=== PATIENT | male | born 1945 | race Caucasian/White ===

== ENCOUNTER 2019-12-15 10:00 | Outpatient (CLI) | payer MEDICARE, SELFPAY ==
--- NOTE | ~2019-12-15 | US_ITS ---
EXAMINATION: US carotid duplex BI DATE: 12/15/2019 10:57 INDICATION: Carotid atherosclerosis and stenosis TECHNIQUE: Grayscale, color Doppler, and pulsed Doppler images of the cervical carotid arteries were obtained. The degree of vessel stenosis is placed in one of the following categories: normal, <50%, 5 0-69%, >=70% but less than near-occlusion, near-occlusion, or total occlusion. Note that percent sten osis relative to normal distal artery lumen diameter is indirectly measured from velocity measurement s as described by Shady, et al. Radiology 2003; 229:340-346. COMPARISON: Carotid ultrasound dated 09/18/[address] dated 11/09/2015 FINDINGS: RIGHT: The right common carotid artery (CCA) peak systolic velocity (PSV) is 109 cm/s. The right internal ca rotid artery (ICA) PSV is 164 cm/s. The right ICA end-diastolic velocity (EDV) is 31 cm/s. The right ICA/CCA PSV ratio is 1.5. Grayscale and color Doppler images yield an estimate of 50-69% diameter red uction from plaque in the ICA. The external carotid artery (ECA) PSV is 156 cm/s. There is antegrade flow with high resistance waveform in a vessel in the region of the right vertebral artery. LEFT: The left CCA PSV is 110 cm/s. The left ICA PSV is 85 cm/s. The left ICA EDV is 14 cm/s. The left ICA/ CCA PSV ratio is 0.8. Grayscale and color Doppler images yield an estimate of <50% diameter reduction from plaque in the ICA. The ECA PSV is 114 cm/s. There is antegrade flow in the left vertebral arter y. IMPRESSION: 1. 50-69% stenosis in the right internal carotid artery. 2. <50% stenosis in the left internal carotid artery. 3. Similar appearance to prior study of minimal antegrade flow with high resistance waveform in the r egion of the right vertebral artery which appeared occluded proximally on an earlier CT angiogram sug gesting this represents flow within a small paravertebral artery. Reviewed, dictated and finalized at location B. IMPRESSION: 1. 50-69% stenosis in the right internal carotid artery. 2. <50% stenosis in the left internal carotid artery. 3. Similar appearance to prior study of minimal antegrade flow with high resist ance waveform in the region of the right vertebral artery which appeared occlud ed proximally on an earlier CT angiogram suggesting this represents flow within a small paravertebral artery.
== END 2019-12-15 10:01 | disposition home or self-care (01) ==
PROVIDERS: PCP Internal Medicine; Visit Provider Nurse Practitioner Adult Health
DX: R09.89 Other specified symptoms and signs involving the circulatory and respiratory systems (principal); I77.9 Disorder of arteries and arterioles, unspecified; I65.23 Occlusion and stenosis of bilateral carotid arteries
CPT/HCPCS: 93880

== ENCOUNTER 2022-06-14 09:55 | Outpatient (CLI) | payer MEDICARE, SELFPAY ==
--- NOTE | ~2022-06-14 | US_ITS ---
EXAMINATION: US carotid duplex BI DATE: 06/14/2022 10:51 INDICATION: Right vertebral artery obstruction TECHNIQUE: Grayscale, color Doppler, and pulsed Doppler images of the cervical carotid arteries were obtained. The degree of vessel stenosis is placed in one of the following categories: normal, <50%, 5 0-69%, >=70% but less than near-occlusion, near-occlusion, or total occlusion. Note that percent sten osis relative to normal distal artery lumen diameter is indirectly measured from velocity measurement s as described by Shady, et al. Radiology 2003; 229:340-346. COMPARISON: Carotid ultrasound studies dated 12/15/2019 and 09/18/[address] angiogram dated 11/09/2015 FINDINGS: RIGHT: The right common carotid artery (CCA) peak systolic velocity (PSV) is 106 cm/s. The right internal ca rotid artery (ICA) PSV is 151 cm/s. The right ICA end-diastolic velocity (EDV) is 36 cm/s. The right ICA/CCA PSV ratio is 1.4. Grayscale and color Doppler images yield an estimate of 50-69% diameter red uction from plaque in the ICA. The external carotid artery (ECA) PSV is 312 cm/s. Again seen is a tin y vessel in the region of the right vertebral artery which demonstrates antegrade flow but with high resistance waveform suggesting this represents a small systemic paravertebral artery rather than the right vertebral artery which appears occluded proximally and the prior CT angiogram. LEFT: The left CCA PSV is 173 cm/s. The left ICA PSV is 148 cm/s. The left ICA EDV is 21 cm/s. The left ICA /CCA PSV ratio is 0.9. Grayscale and color Doppler images yield an estimate of 50-69% diameter reduct ion from plaque in the ICA. The ECA PSV is 183 cm/s. There is antegrade flow in the left vertebral ar [place]. IMPRESSION: 1. 50-69% stenosis in the right internal carotid artery. 2. 50-69% stenosis in the left internal carotid artery. 3. Similar appearance to prior study of minimal antegrade flow with high resistance waveform in a suzette y small artery in the region of the right vertebral artery which appeared occluded proximally on an e arlier CT angiogram suggesting this represents flow within a small systemic para vertebral artery. Reviewed, dictated and finalized at location A. IMPRESSION: 1. 50-69% stenosis in the right internal carotid artery. 2. 50-69% stenosis in the left internal carotid artery. 3. Similar appearance to prior study of minimal antegrade flow with high resist ance waveform in a very small artery in the region of the right vertebral arter y which appeared occluded proximally on an earlier CT angiogram suggesting this represents flow within a small systemic para vertebral artery.
== END 2022-06-14 09:56 | disposition home or self-care (01) ==
PROVIDERS: PCP Internal Medicine; Visit Provider Internal Medicine Cardiovascular Disease
DX: I65.23 Occlusion and stenosis of bilateral carotid arteries (principal); I65.01 Occlusion and stenosis of right vertebral artery
CPT/HCPCS: 93880

== ENCOUNTER 2023-04-27 12:29 | Emergency (ER) | payer MEDICARE, SELFPAY ==
[2023-04-27 12:39] VITALS: BP 180/62; PULSE 79; RESP 18; TEMP 36.6; O2SAT 98
[2023-04-27 12:41] VITALS: BP 176/66
--- NOTE | 2023-04-27 12:52 | ED.UPPEXIN ---
HPI - Extremity Injury (Upper) General Chief Complaint: Extremity Injury, Upper Stated Complaint: Left Finger Injury Time Seen by Provider: 04/27/23 12:46 Source: patient and RN notes reviewed Mode of arrival: ambulatory Limitations: no limitations History of Present Illness HPI narrative: Patient presents today complaining of laceration to the left 2nd finger. He was using a precision grinder external at home and slipped cutting his finger approximately 1 hour prior to arrival. He is currently pain-free. Denies numbness or tingling. He is up-to-date on his tetanus vaccine. Related Data Home Medications Medication Instructions Recorded Confirmed amlodipine 5 mg tablet 5 mg PO DAILY 03/18/19 04/27/23 aspirin 81 mg tablet,delayed 81 mg PO DAILY 03/18/19 04/27/23 release (Adult Aspirin Regimen) rosuvastatin 40 mg tablet 40 mg PO DAILY 03/18/19 04/27/23 cholecalciferol (vitamin D3) 50 50 mcg PO DAILY 09/30/20 04/27/23 mcg (2,000 unit) capsule lisinopril 20 mg tablet 20 mg PO BID 04/12/21 04/27/23 Allergies Allergy/AdvReac Type Severity Reaction Status Date / Time No Known Allergies Allergy Verified 04/27/23 12:33 Review of Systems Review of Systems: CONSTITUTIONAL: Denies body aches, fever, chills, or sweats. EYES: Denies visual changes, redness, or discharge. ENT: Denies rhinorrhea, congestion, sore throat, or otalgia. CARDIOVASCULAR: Denies chest pain, palpitations, or edema. RESPIRATORY: Denies cough or dyspnea. GASTROINTESTINAL: Denies abdominal pain, nausea, vomiting, or diarrhea. GENITOURINARY: Denies dysuria or hematuria. SKIN: Denies rash, itching. + finger laceration MUSCULOSKELETAL: Denies back pain, joint pain, or myalgia. NEUROLOGIC: Denies headache, numbness, tingling, or weakness. PSYCH: Denies depression or anxiety. 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) Cyst of scrotum Surgical History Surgical History H/O colonoscopy H/O heart bypass surgery Family History Family History Father Family history of suicide Patient's father is Mother Cerebrovascular accident Sibling Malignant neoplasm of prostate Family history of malignant neoplasm Other Hypertension Social History Social History Smoking packs per day: 1.5 Smoking cigarettes per day: 30.0 Years smoked: 20 Smoking pack-years: 30.00 Smoking status: Former smoker Smoking end date: 02/19/14 Alcohol intake: current Alcohol use details: social Substance use: never Substance use type: does not use Comments At time of signature, I have reviewed and agree with nursing past medical, surgical, social and family history unless otherwise noted. Please see nursing chart for further information. There is no relevant family history pertinent to the presenting complaint Exam Narrative: GENERAL: Well-appearing, well-nourished, and in no acute distress. HEAD: Normocephalic, atraumatic. EYES: EOMI. No redness or drainage. Conjunctivae normal. ENT: Mucous membranes pink and moist. NECK: Normal AROM. CHEST: No respiratory distress. EXTREMITIES: Left 2nd finger: 1 cm partial-thickness linear laceration on the dorsum of the PIP within area measuring approximately 1 cm x 1 cm skin avulsion. Distal sensation intact. Capillary refill normal. Full range of motion of the finger. SKIN: Warm, dry, no rash. Capillary refill normal. Normal skin turgor. NEURO: No focal deficits. Alert and oriented x3. Gait steady. PSYCH: Normal affect. No signs of depression or anxiety. Course Course Level of Care: Express Care Visit Vital Signs Vital signs: Vital Signs Temperature 97.8 F 04/27/23 12:39 Pulse Rate 79 04/27/23 12
== END 2023-04-27 14:04 | disposition home or self-care (01) ==
PROVIDERS: Emergency Provider Nurse Practitioner; PCP Family Medicine
DX: S61.211A Laceration without foreign body of left index finger without damage to nail, initial encounter (principal); Z79.82 Long term (current) use of aspirin; Z79.899 Other long term (current) drug therapy; Z87.891 Personal history of nicotine dependence; W27.4XXA Contact with kitchen utensil, initial encounter
CPT/HCPCS: 12001; 99213; G0463

== ENCOUNTER 2024-09-08 01:33 | Day surgery (SDC) | payer MEDICARE, SELFPAY ==
[2024-08-25 13:58] VITALS: BMI 30.5
--- OUTSIDE RECORDS SUMMARY | 2024-09-08 01:36 | XMS_ITS | Clinical Summary ---
Author Organization [facility] Address [address], [address] [address] Phone Care Team Providers Care Radiological Engineer Name Role Phone Garry Lombardi MD Primary Care Provider [phone] Guanaco Oh DO Unavailable [phone] Allergies No known active allergies Medications polyethylene glycol (MIRALAX) Powder Use entire 255g bottle with 64oz of clear liquid as directed for colonoscopy prep. 255 g 7 Active atorvastatin (LIPITOR) 40 MG Tablet Take 40 mg by mouth daily. Active lisinopril (PRINIVIL, ZESTRIL) 20 MG Tablet Take 20 mg by mouth daily. Active hydroCHLOROthia zide (MICROZIDE) 12.5 MG Capsule Take 12.5 mg by mouth daily. Active metoprolol tartrate (LOPRESSOR) 25 MG Tablet Take 25 mg by mouth 2 times daily. Active Aspirin 81 MG Tablet Take 81 mg by mouth daily. Active Immunizations Immunization Administration Dates Next Due Covid-19, Mrna, Lnp-s, Pf, 30 Mcg/0.3 Ml Dose (Nikki fifranklin) 04/24/2020,04/03/2020 Family History Medical History Relation Name Comments Bladder cancer Brother Relation Name Status Comments Brother Social History Tobacco Use Types Packs/Day Years Used Date Smoking Tobacco: Former Cigarettes 2 40 Smokeless Tobacco: Never Alcohol Use Standard Drinks/Week Comments Yes 0 (1 standard drink = 0.6 oz pur e alcohol) Sex and Gender Information Value Date Recorded Sex Assigned at Not on file Legal Sex Male 9:57 AM CDT Gender Identity Not on file Sexual Orientation Not on file Plan of Treatment Health Maintenance Due Date Last Done Comments Hepatitis C Virus (HCV) Screening 1945 TdaP Immunization 1945 Respiratory Syncytial Virus (RSV) Immunization (Adult) (1 - 1-dose 75+ series) 12/27/2019 SARS-COV-2 Immunization ( season) 2023 02/02/2021, 04/24/2020, 04/03/2020 Influenza Immunization (#1) 10/20/202407/2019, 01/22/2019, 11/19/2015 Colonoscopy Discontinued 10/26/2016 Colorectal Cancer Screening Discontinued Pneumococcal Immunization (5 0+ years) Completed 03/29/2017, 11/19/2015 Pneumococcal Immunization Combined Discontinued 03/29/2017, 11/19/2015 Zoster Immunization Completed 01/22/2019, 10/11/2018 Cologuard Discontinued Hepatitis B Immunization Aged Out No longer eligible based on patient's age to complete this topic Human Papillomavirus (HPV) Immunization Aged Out No longer eligible based on patient's age to complete this topic Immunochemical Fecal Occult Blood Discontinued Meningococcal Immunization (ACWY) Aged Out No longer eligible based on patient's age to complete this topic Rotavirus Immunization Aged Out No lo nger eligible based on patient's age to complete this topic Procedures Procedure Name Priority Date/Time Associated Diagnosis Comments COLONOSCOPY Routine 10/26/2016 from Last 3 Months or Most Recently Relevant to Health Maintenance Results * COLONOSCOPY (10/26/2016) Guanaco Oh DO PROCEDURE/MINOR SURGICAL ORDERA BLES Final Result from Last 3 Months or Most Recently Relevant to Health Maintenance Insurance MEDICARE C [employer] Care Teams Radiological Engineer Relationship Specialty Start Date End Date Garry Lombardi MD [address] [facility] [address] [place] [address] PCP - General Internal Medicine 09/11/16 Guanaco Oh DO [address] [facility] [address] [place] [address] Consulting Physician Gastroenterology 10/26/16
--- OUTSIDE RECORDS SUMMARY | 2024-09-08 01:36 | XMS_ITS | Encounter Summary ---
Author Organization [facility] Facility Care Team Providers Care Pattern Cutter Name Role Phone Garry Lombardi MD Primary Care Provider [phone] Saulo Tinoco DO Primary Care Provider [phone] Encounter Details Date Type Department Care Team (Latest Contact Info) Description 11/16/2015 Orders Only [facility] ProviderAlyssa MD [address] [place] [id number] Social History Tobacco Use Types Packs/Day Years Used Date Smoking Tobacco: Former Alcohol Use Standard Drinks/Week Comments No 0 (1 standard drink = 0.6 oz pur e alcohol) Sex and Gender Information Value Date Recorded Sex Assigned at Not on file 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 Historical Provider Final Res ult documented in this encounter Visit Diagnoses Not on filedocumented in this encounter Care Teams Pattern Cutter Relationship Specialty Start Date End Date Garry Lombardi MD PCP - General 06/04/15 09/02/17 Saulo Tinoco DO PCP - General Internal Medicine 09/03/17 documented as of this encounter
--- OUTSIDE RECORDS SUMMARY | 2024-09-08 01:36 | XMS_ITS | Encounter Summary ---
Author Organization [facility] Facility Care Team Providers Care Service Clerk Name Role Phone Garry Lombardi MD Primary Care Provider [phone] Saulo Tinoco DO Primary Care Provider [phone] Encounter Details Date Type Department Care Team (Latest Contact Info) Description 12/03/2015 Orders Only [facility] CLINCONV ProviderAlyssa MD [address] [place] [address] Social History Tobacco Use Types Packs/Day Years Used Date Smoking Tobacco: Former Alcohol Use Standard Drinks/Week Comments No 0 (1 standard drink = 0.6 oz pur e alcohol) Sex and Gender Information Value Date Recorded Sex Assigned at Not on file 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 Historical Provider Final Res ult documented in this encounter Visit Diagnoses Not on filedocumented in this encounter Care Teams Service Clerk Relationship Specialty Start Date End Date Garry Lombardi MD PCP - General 06/04/15 09/02/17 Saulo Tinoco DO PCP - General Internal Medicine 09/03/17 documented as of this encounter
--- OUTSIDE RECORDS SUMMARY | 2024-09-08 01:36 | XMS_ITS | Referral Summary ---
Author Organization [facility] [address] [address] [address] [place] [address] Care Team Providers Care Supervisor Slate Splitting Name Role Phone Saulo Tinoco DO Primary Care Provider [phone] Allergies No known active allergies Medications cholecalciferol (VITAMIN D-3) 25 mcg (1,000 unit) tablet Take 1 tablet (1,000 Units total) by mouth daily 12/23/2009 Active aspirin 81 mg enteric coated tablet Take 1 tablet (81 mg total) by mouth daily 90 tablet 11 01/30/2024 Active amLODIPine (NORVASC) 10 mg tablet Take 1 tablet (10 mg total) by mouth daily 100 tablet 6 02/01/2024 Active lisinopriL (PRINIVIL,ZESTRI L) 20 mg tablet TAKE 1 TABLET BY MOUTH TWICE DAILY 200 tablet 2 03/26/2024 Active rosuvastatin (CRESTOR) 40 mg tablet TAKE 1 TABLET BY MOUTH DAILY 100 tablet 2 05/26/2024 Active Active Problems Problem Noted Date Diagnosed Date Mixed hyperlipidemia 12/15/2020 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 Overview (05/26/2016): Vertebral artery obstruction, 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 Overview (05/26/2016): Tobacco abuse, in remission Dizziness 09/24/2015 Overview (05/26/2016): Dizziness Bilateral carotid artery stenosis 05/03/2015 Overview (05/26/2016): Bilateral carotid artery disease Coronary artery disease invo lving [place] coronary artery of [place] heart without angina pectoris 02/08/2015 Overview (05/26/2016): Coronary artery disease involving [place] coronary artery of [place] heart without angina pectoris Benign hypertension 02/08/2015 Overview (05/26/2016): HTN (hypertension), benign Tobacco dependence syndrome 02/08/2015 Overview (05/26/2016): Tobacco abuse Resolved Problems Problem Noted Date Diagnosed Date Resolved Date History of coronary artery bypass surgery 02/08/2015 03/01/2017 Overview (05/26/2016): S/P CABG x 2 Dyslipidemia 02/08/2015 12/15/2020 Overview (05/26/2016): Mixed dyslipidemia Chronic coronary artery disease 01/28/2015 06/22/2021 Social History Tobacco Use Types Packs/Day Years Used Date Smoking Tobacco: Former Smokeless Tobacco: Never Tobacco Cessation:Counseling Given: Not Answered Alcohol Use Standard Drinks/Week Comments No 0 (1 standard drink = 0.6 oz pur e alcohol) Sex and Gender Information Value Date Recorded Sex Assigned at Not on file 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 Gender Identity Not on file Sexual Orientation Not on file Last Filed Vital Signs Vital Sign Reading Time Taken Comments Blood Pressure 162/62 01/30/2024 9:30 AM CONTRACTS DIRECTOR Pulse 68 01/30/2024 9:30 AM CONTRACTS DIRECTOR Temperature - - Respiratory Rate 14 08/23/2016 1:33 PM CDT Oxygen Saturation 96% 01/30/2024 9:30 AM CONTRACTS DIRECTOR Inhaled Oxygen Concentration - - Weight 90.7 kg (200 lb) 01/30/2024 9:30 AM CONTRACTS DIRECTOR Height 170.2 cm (5' 7) 01/30/2024 9:30 AM CONTRACTS DIRECTOR Body Mass Index 31.32 01/30/2024 9:30 AM CONTRACTS DIRECTOR Plan of Treatment Not on file Insurance [facility] MEDICARE ADVANTAGE [id number] MEDICARE ADVANTAGE Care Teams Supervisor Slate Splitting Relationship Specialty Start Date End Date Saulo Tinoco DO PCP - General Internal Medicine 09/03/17
--- OUTSIDE RECORDS SUMMARY | 2024-09-08 01:36 | XMS_ITS | Encounter Summary ---
Author Organization [facility] Facility Care Team Providers Care Hatch Tender Name Role Phone Garry Lombardi MD Primary Care Provider [phone] Saulo Tinoco DO Primary Care Provider [phone] Encounter Details Date Type Department Care Team (Latest Contact Info) Description 12/01/2015 Orders Only [facility] CLINCON[facility] ProviderAlyssa MD [address] [place] [address] Social History Tobacco Use Types Packs/Day Years Used Date Smoking Tobacco: Former Alcohol Use Standard Drinks/Week Comments No 0 (1 standard drink = 0.6 oz pur e alcohol) Sex and Gender Information Value Date Recorded Sex Assigned at Not on file 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 Historical Provider Final Res ult documented in this encounter Visit Diagnoses Not on filedocumented in this encounter Care Teams Hatch Tender Relationship Specialty Start Date End Date Garry Lombardi MD PCP - General 06/04/15 09/02/17 Saulo Tinoco DO PCP - General Internal Medicine 09/03/17 documented as of this encounter
--- OUTSIDE RECORDS SUMMARY | 2024-09-08 01:36 | XMS_ITS | Clinical Summary ---
Author Organization [facility] [address] [address] [address] [place] [address] Care Team Providers Care Trucker Hand Name Role Phone Saulo Tinoco DO Primary Care Provider [phone] Allergies No known active allergies Medications cholecalciferol [...] artery disease Coronary artery disease invo lving [place] coronary artery of [place] heart without angina pectoris 02/08/2015 Overview (05/26/2016): Coronary artery disease involving [place] coronary artery of [place] heart without angina pectoris Benign hypertension 02/08/2015 Overview (05/26/2016): HTN (hypertension), benign Tobacco dependence syndrome 02/08/2015 Overview (05/26/2016): Tobacco abuse Resolved Problems Problem Noted Date Diagnosed Date Resolved Date History of coronary artery bypass surgery 02/08/2015 03/01/2017 Overview (05/26/2016): S/P CABG x 2 Dyslipidemia 02/08/2015 12/15/2020 Overview (05/26/2016): Mixed dyslipidemia Chronic coronary artery disease 01/28/2015 06/22/2021 Surgical History Surgery Date Site/Laterality Comments BYPASS GRAFT 02/19/2015 - 02/19/2016 Medical History Medical History Date Comments Hypertension Coronary artery disease Family History Medical History Relation Name Comments Hypertension Father Hypertension; Hypertension Mother Hypertension; Relation Name Status Comments Father Mother Social History Tobacco Use Types Packs/Day Years Used Date Smoking Tobacco: Former Smokeless Tobacco: Never Tobacco Cessation:Counseling Given: Not Answered Alcohol Use Standard Drinks/Week Comments No 0 (1 standard drink = 0.6 oz pur e alcohol) Sex and Gender Information Value Date Recorded Sex Assigned at Not on file 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 Gender Identity Not on file Sexual Orientation Not on file Obstetrics History Last Filed Vital Signs Vital Sign Reading Time Taken Comments Blood Pressure 162/62 01/30/2024 9:30 AM PHOTOGRAPH RETOUCHER Pulse 68 01/30/2024 9:30 AM PHOTOGRAPH RETOUCHER Temperature - - Respiratory Rate 14 08/23/2016 1:33 PM CDT Oxygen Saturation 96% 01/30/2024 9:30 AM PHOTOGRAPH RETOUCHER Inhaled Oxygen Concentration - - Weight 90.7 kg (200 lb) 01/30/2024 9:30 AM PHOTOGRAPH RETOUCHER Height 170.2 cm (5' 7) 01/30/2024 9:30 AM PHOTOGRAPH RETOUCHER Body Mass Index 31.32 01/30/2024 9:30 AM PHOTOGRAPH RETOUCHER Plan of Treatment Health Maintenance Due Date Last Done Comments Depression Screening 1945 Fall Risk Assessment 1945 Hepatitis C Screening 1945 Hepatitis B Screening 1962 Abdominal Aortic Aneurysm (A AA) Screen 2009 Well Visit 65+ 2009 Zoster Vaccine (2 of 2) 12/06/2018 10/11/2018 DTaP/Tdap/Td Vaccine (3 - Td or Tdap) 11/17/2019, 02/19/2003 Covid-19 Vaccine (3 - season) 10/21/202307/2020, 04/03/2020 Influenza Vaccine (#1) 2024 11/19/2015, 2009 Pneumococcal vaccine 65+ Completed 018, 11/19/2015, 07/26/2011 Insurance [id number] MEDICARE ADVANTAGE [facility] MEDICARE ADVANTAGE Care Teams Trucker Hand Relationship Specialty Start Date End Date Saulo Tinoco DO PCP - General Internal Medicine 09/03/17
[2024-09-08 09:30] VITALS: BP 164/62; PULSE 73; RESP 20; TEMP 36.4; O2SAT 97; BMI 29.9
[2024-09-08] MEDS: LACTATED RINGERS 1,000 ML 150 ML IV CONT (09:47)
--- NOTE | 2024-09-08 10:22 | P.PNAN_ITS ---
Anes - Initial Pre Proc Eval Procedure: Operation Date: 09/08/24 11:00 Proposed Procedures p Screening Colonoscopy - Bart Mott MD Date/Time: 09/08/24 10:22 Surgeon: Bart Mott MD Pre Op Diagnosis: screening Patient Data Age: 78 Gender: M Height: 1.7 m Weight: 86.8 kg Last Vital Signs Temp 97.5 F L 09/08/24 09:30 Pulse 73 09/08/24 09:30 Resp 20 09/08/24 09:30 BP 164/62 H 09/08/24 09:30 Pulse Ox 97 09/08/24 09:30 O2 Del Method Room Air 09/08/24 09:30 Allergies Allergy/AdvReac Type Severity Reaction Status Date / Time No Known Allergies Allergy Verified 09/08/24 09:36 Home Medications ?Medication ?Instructions ?Recorded ?Confirmed ?Type aspirin 81 mg tablet,delayed 81 mg PO DAILY 03/18/19 09/08/24 History release (Adult Aspirin Regimen) rosuvastatin 40 mg tablet 40 mg PO DAILY 03/18/19 09/08/24 History cholecalciferol (vitamin D3) 50 50 mcg PO DAILY 09/30/20 09/08/24 History mcg (2,000 unit) capsule lisinopril 20 mg tablet 20 mg PO BID 04/12/21 09/08/24 History amlodipine 10 mg tablet 10 mg PO DAILY 05/15/24 09/08/24 History Patient hx anesthesia problems: none Family hx anesthesia problems: none Results Review: All pre-operative results and documents have been reviewed as part of the pre- operative evaluation. 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) Cyst of scrotum Surgical History Surgical History H/O colonoscopy H/O heart bypass surgery Family History Family History Father Family history of suicide Patient's father is Mother Cerebrovascular accident Sibling Malignant neoplasm of prostate Family history of malignant neoplasm Other Hypertension Social History Social History Smoking packs per day: 1.5 Smoking cigarettes per day: 30.0 Years smoked: 25 Smoking pack-years: 37.50 Smoking status: Former smoker Smoking end date: 02/19/14 Alcohol intake: current Drinks per week: 5 Alcohol use details: Beer Substance use: never Substance use type: does not use Living arrangements: with family Spiritual care concerns: No Anes - Eval Final PreProcedure Day of Procedure 09/08/24 10:22 Patient weight: normal Heart: regular rate and rhythm Lungs: clear to auscultation Airway: Mallampati scale class II Neurological: alert and oriented Last oral intake: >/= 8 hours ASA classification: III Emergent: no Anesthetic plan: proceed Anesthesia type and monitoring: general GIVS and standard monitoring Results Review: All pre-operative results and documents have been reviewed as part of the pre- operative evaluation. Informed Consent: The patient's anesthetic plan and its attendant risks and benefits were discussed with the patient/family/POA. Questions were solicited and answers provided to the satisfaction of the patient/family/POA.
--- NOTE | 2024-09-08 10:53 | P.HP_ITS ---
H&P: HPI History of Present Illness Date/Time: 09/08/24 10:53 Chief Complaint: Screening colonoscopy Narrative: This is the patient's 3rd colonoscopy. There are no GI symptoms and there is no family history of colorectal cancer. 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 Surgical History Surgical History H/O colonoscopy H/O heart bypass surgery Family History Family History Father Family history of suicide Patient's father is Mother Cerebrovascular accident Sibling Malignant neoplasm of prostate Family history of malignant neoplasm Other Hypertension Social History Social History Smoking packs per day: 1.5 Smoking cigarettes per day: 30.0 Years smoked: 25 Smoking pack-years: 37.50 Smoking status: Former smoker Smoking end date: 02/19/14 Alcohol intake: current Drinks per week: 5 Alcohol use details: Beer Substance use: never Substance use type: does not use Living arrangements: with family Spiritual care concerns: No Meds Home Medications and Allergies Home Medications ?Medication ?Instructions ?Recorded ?Confirmed ?Type aspirin 81 mg tablet,delayed 81 mg PO DAILY 03/18/19 09/08/24 History release (Adult Aspirin Regimen) rosuvastatin 40 mg tablet 40 mg PO DAILY 03/18/19 09/08/24 History cholecalciferol (vitamin D3) 50 50 mcg PO DAILY 09/30/20 09/08/24 History mcg (2,000 unit) capsule lisinopril 20 mg tablet 20 mg PO BID 04/12/21 09/08/24 History amlodipine 10 mg tablet 10 mg PO DAILY 05/15/24 09/08/24 History Allergies Allergy/AdvReac Type Severity Reaction Status Date / Time No Known Allergies Allergy Verified 09/08/24 09:36 Vital Signs Vital Signs - 24 hr 09/08/24 09:30 Temperature 97.5 F L Pulse Rate 73 Respiratory Rate 20 Blood Pressure 164/62 H Pulse Oximetry 97 Oxygen Delivery Room Air Exam Const: General: cooperative and healthy appearing Resp: Effort & Inspection: normal respiratory effort and able to speak in complete sentences Auscultation: clear to auscultation bilaterally Cardio: Rate: regular rate Rhythm: regular rhythm GI: Inspection: normal to inspection GI Palp: No No hepatosplenomegaly present Auscultation: normal bowel sounds Rectal Exam: deferred Skin: General skin exam: normal color Psych: Appearance: grossly normal Mental Status: mental status grossly normal Assessment and Plan Assessment and plan (1) Colon cancer screening: Code(s): Z12.11 - Encounter for screening for malignant neoplasm of colon Status: Acute Assessment and Plan: The patient is deemed a good candidate for the procedure. Consent signed. Will proceed.
--- NOTE | 2024-09-08 11:17 | S_PTH ---
PATIENT: Chance Ibarra LOC: [facility] U#:[id number] AGE/SX: 78/M ROOM: RE09/08/[address]: Bart Mott MD : 1945 BED: DIS: 09/08/2024 SPEC #: [id number] RECD: 09/08/24 11:53 STATUS: CLEMENCIA REQ #: [id number] FACUNDO: 09/08/24 11:[address]: Bart Mott DEPT: [facility] Surgical RECD BY: Bita Salas ENTERED: 09/08/24 11:53 SP TYPE: Surgical OTHR DR: Pernell Conroy MD Tissues: A - Colon Polypectomy Procedures: Hematoxylin and Eosin Stain Gross and Microscopic Level 4
[2024-09-08 11:19] VITALS: BP 90/49; PULSE 56; RESP 18; O2SAT 97
[2024-09-08 11:29] VITALS: BP 112/60; PULSE 57; RESP 21; O2SAT 98
[2024-09-08 11:39] VITALS: BP 126/62; PULSE 58; RESP 20; O2SAT 99
== END 2024-09-08 11:50 | disposition home or self-care (01) ==
PROVIDERS: PCP Family Medicine; Referring Provider Family Medicine; Visit Provider Internal Medicine Gastroenterology
PROC: 0DJD8ZZ Inspection of Lower Intestinal Tract, Via Natural or Artificial Opening Endoscopic (ICD-10-PCS; CPT 45378; principal; 2024-09-08 11:00)
DX: Z12.11 Encounter for screening for malignant neoplasm of colon (principal); D12.3 Benign neoplasm of transverse colon; K57.30 Diverticulosis of large intestine without perforation or abscess without bleeding; Z87.891 Personal history of nicotine dependence
CPT/HCPCS: 45385; 88305; J2003; J2704; J7120